=== PATIENT | female | born 1995 | race Caucasian/White ===

== ENCOUNTER → 2017-07-22 | Outpatient (CLI) | payer BC, OTHER ==
[2017-07-22 14:18] VITALS: BP 138/86; PULSE 105; TEMP 98.1; BMI 45.2
[2017-07-22 16:00] LABS: HCT 40.8 % (34.0-46.0); HGB 13.4 gm/dL (11.4-16.0); MCH 30.2 pg (25.0-35.0); MCHC 32.7 g/dL (31.0-37.0); MCV 92.2 fL (80.0-100.0); Mean Platelet Volume 7.1; Platelet Count 346 k/uL (150-450); RBC 4.43 m/uL (3.80-5.40); RDW 12.7 % (11.5-15.5); WBC 7.3 k/uL (3.8-10.6)
[2017-07-22 16:07] LABS: Partial Thromboplastin Time 23.3 sec (22.0-30.0); Prothrombin Time 9.7 sec (9.0-12.0)
[2017-07-22 16:19] LABS: ALT 34 U/L (9-52); AST 26 U/L (14-36); Albumin 4.3 g/dL (3.5-5.0); Alkaline Phosphatase 89 U/L (38-126); Anion Gap 8 mmol/L; Blood Urea Nitrogen 14 mg/dL (7-17); Calcium 9.9 mg/dL (8.4-10.2); Carbon Dioxide 29 mmol/L (22-30); Chloride 105 mmol/L (98-107); Cholesterol 144 mg/dL (<200); Glucose 86 mg/dL (74-99); HDL Cholesterol 55 mg/dL (40-60); LDL Cholesterol,Calculated 74 mg/dL (0-99); Phosphorus 4.7 mg/dL (2.5-4.5); Sodium 142 mmol/L (137-145); Total Bilirubin 0.4 mg/dL (0.2-1.3); Triglycerides 74 mg/dL (<150)
[2017-07-23 00:42] LABS: Iron Saturation 29.55 (12.00-45.00)
[2017-07-23 00:51] LABS: Vitamin D 25 Hydroxy 24.4 ng/mL (30.0-100.0)
[2017-07-23 00:55] LABS: Folate, Serum 18.2 ng/mL
[2017-07-23 01:16] LABS: Vitamin B12 >4000.0 pg/mL (211-911)
[2017-07-23 04:01] LABS: Hemoglobin A1C 4.6 % (4.0-6.0)
[2017-07-23 11:55] LABS: Zinc, Serum 51 ug/dL (60-130)
[2017-07-23 12:05] LABS: Vitamin B1 62 ug/L (38-122)
[2017-07-26 05:57] LABS: Vitamin A 34 ug/dL (38-106)
[2017-07-27 17:03] LABS: Selenium 142 mcg/L (63-160)
--- NOTE | 2017-08-27 14:35 | P.HPBAR ---
Bariatric H&P - History & Physicial H&P Date: 07/22/17 History & Physicial: Visit/CC: initial visit Patient initial contact: Initial weight: Initial weight in pounds: Height: 5 ft 2 in Initial BMI: Last weight: Current weight: 112.128 kg Current weight in pounds: 247.20 Current BMI: 45.2 Fine body weight (based on NIH guidelines): 49.895 kg Excess body weight loss: The patient is a 21 year-old F who presents for Bariatric Assessment. DATE OF SERVICE: 07/22/2017 REASON FOR CONSULTATION: Initial bariatric evaluation HISTORY OF PRESENT ILLNESS: Waleska Jaimes is a 22-year-old female who comes with a past history of sleeve gastrectomy to gastric bypass. Her highest weight was 322 pounds. Her lowest weight was 241 pounds. Presently she is on Adipex. She has a strong family history of morbid obesity. Her mother had a gastric bypass and went from 196 pounds 145 pounds. Patient reports being diagnosed with bipolar disorder however she is not taking her medication. Her prior procedure was done in 2014. She has not had follow-up with any doctors. She reports personality conflict with her bariatric provider. Currently, she reports having no bariatric provider. No reports of abdominal pain. No reports of gastroesophageal reflux disease. She denies any problems from her remission. She reports her previous surgery was due to weight loss plateau. Separately, she's been placed on a control. At her height of 5 foot 1-1/4 inch, her ideal body weight is 135 pounds. Highest weight 322 pounds. Today she comes in weighing 247 pounds. She is 112 pounds overweight. Body mass index is decreased from 59.0 to 45.2. Percent excess weight loss 40%. PAST MEDICAL HISTORY: 1. Morbid obesity. 2. Body mass index of 59.0, initial 3. Osteoarthritis of the knees. 4. Osteoarthritis of the hips. 5. Osteoarthritis of the lower back. 6. Obstructive sleep apnea, resolved. 7. Hypertensive heart disease. PAST SURGICAL HISTORY: 1. Sleeve gastrectomy 2. Revision to gastric bypass 3. Cholecystectomy 4. Tonsillectomy 5. Left tendon foot repair 6. Right carpal tunnel release HOME MEDICATIONS: 1. Adipex 2. Multivitamin 3. Potassium 4. Vitamin B12 5. [place]-3 ALLERGIES: Denies SOCIAL HISTORY: No active tobacco use. FAMILY HISTORY: No family history of ulcerative colitis disease or Crohn's disease. Family history of morbid obesity. No lupus in the family. No reports of stomach or esophageal cancer. REVIEW OF ORGAN SYSTEMS: CONSTITUTIONAL: At her height of 5 foot 1-1/4 inch, her ideal body weight is 135 pounds. Highest weight 322 pounds. Today she comes in weighing 247 pounds. She is 112 pounds overweight. Body mass index is decreased from 59.0 to 45.2. Percent excess weight loss 40%. HEENT: Denies any active troubles with vision or hearing. No troubles with swallowing. ENDOCRINE: No diabetes. Nohypothyroidism. CARDIOVASCULAR: No reports of palpitations or heart attacks or chest pain. RESPIRATORY: Past daytime somnolence. No asthma. GI: Denies any bright red blood per rectum. No diarrhea or constipation. MUSCULOSKELETAL: Has lower back pain and joint pain. Has osteoarthritis of the knees. NEURO: No headaches. No seizure disorders. PSYCH: No depression or suicidal ideation. Has bipolar disorder untreated. RHEUMATOLOGIC: No lupus. No rheumatoid arthritis. HEMATOLOGIC: Denies any abnormal bleeding or bruising. No personal history of DVTs. SKIN: No rash. No skin cancer. PHYSICAL EXAM: VITAL SIGNS: Height 5 foot 2 inches, weight 247 pounds. BMI 45.2 Vital Signs Temp 98.1 F 07/22/17 14:13 Pulse 105 H 07/22/17 14:13 Resp BP 138/86 07/22/17 14:13 Pulse Ox GENERAL: Well-developed in no acute distress. HEENT: No scleral icterus. Extraocular movements grossly intact. Hears conversational speech. No nasal drainage. NECK: Supple without lymphadenopathy. CHEST: Nonlabored respirations with equal bilateral excursions. CARDIOVASCULAR: Tachycardic. Distal 2+ pulses. ABDOMEN: Obese, soft, nontender, nondistended. MUSCULOSKELETAL: No clubbing, cyanosis. Gross strength 5/5 distal lower extremities. No bilateral pitting edema. NEURO: No focal or lateralizing signs. Cranial nerves 2 through 12 grossly within normal limits. PSYCH: Appropriate affect. Alert and oriented to person, place and time. SKIN: Good skin turgor. Well perfused. ASSESSMENT: 1. Morbid obesity due to excess calories. 2. Body mass index of 59.0 to 45.2. 3. Osteoarthritis of the knees, improved 4. Osteoarthritis of the hips, improved 5. Osteoarthritis of the lower back, improved 6. Obstructive sleep apnea, resolved 7. Hypertensive heart disease, improved 8. Family history of morbid obesity 9. Revision from sleeve to gastric bypass PLAN: 1. On review of her personal history, she reports moderate weight gain following start of her control pill which is very common. 2. Recommend bariatric metabolic panel for metabolic deficiencies. 3. Recommend evaluation of bariatric dietitian. 4. Recommend food journal. 5. She had multiple revisions and recommend close evaluation for weight loss. Thank you for this consultation. Past Medical History History of Any Multi-Drug Resistant Organisms: None Reported Past Surgical History: Bariatric Surgery, Cholecystectomy, Orthopedic Surgery, Tonsillectomy Additional Past Surgical History / Comment(s): left foot achilles tendon surgery multiple, right hand carpal tunnel surgery sleeve gastrectomy then revision to gastric bypass Past Anesthesia/Blood Transfusion Reactions: No Reported Reaction Past Psychological History: No Psychological Hx Reported Smoking Status: Never smoker Past Alcohol Use History: None Reported Past Drug Use History: None Reported Surgical - Exam Vital Signs Temp Pulse BP 98.1 F 105 H 138/86 07/22/17 14:13 07/22/17 14:13 07/22/17 14:13 Results - Labs 07/22/17 15:17 07/22/17 15:17 Bariatric Checklist Checklist: Plan: Checklist: EGD: 1. Hiatal hernia: 2. H. Pylori: HgbA1c: Vitamin D: Smoking: Never smoker Primary care physician referral: dr mckeon Psychiatry clearance: Cardiology clearance: Sleep study: Diet journal: VTE risk score: VTE risk level: Rehab needs at discharge:
== END | disposition home or self-care (01) ==
LOC: BARWHC3 12:46
PROVIDERS: ATTEND Surgery Plastic and Reconstructive Surgery
DX: Z48.815 Encounter for surgical aftercare following surgery on the digestive system (principal); E66.01 Morbid (severe) obesity due to excess calories; M17.0 Bilateral primary osteoarthritis of knee; M16.0 Bilateral primary osteoarthritis of hip; M19.90 Unspecified osteoarthritis, unspecified site; I11.9 Hypertensive heart disease without heart failure; I50.9 Heart failure, unspecified; Z84.89 Family history of other specified conditions; Z98.84 Bariatric surgery status; Z68.42 Body mass index [BMI] 45.0-49.9, adult; Z79.899 Other long term (current) drug therapy
CPT/HCPCS: 36415; 80053; 80061; 82306; 82525; 82607; 82728; 82746; 83036; 83540; 83550; 83735; 83970; 84100; 84134; 84255; 84425; 84443; 84590; 84630; 85027; 85610; 85730; 99201